=== PATIENT | male | born 1960 | race Caucasian/White ===

== ENCOUNTER → 2018-01-23 | Outpatient (CLI) | payer OTHER | LOC: HRAD 14:05 | PROVIDERS: ATTEND Internal Medicine Rheumatology | DX: Z53.9 Procedure and treatment not carried out, unspecified reason (principal) ==

== ENCOUNTER → 2018-01-26 | Outpatient (CLI) | payer OTHER ==
--- NOTE | 2018-01-26 15:05 | RADRPT ---
EXAM DATE/TIME: 01/26/2018 14:25 [facility] COMPARISON: No previous studies available for comparison. INDICATIONS : Patient states left elbow pain. MEDICAL HISTORY : Arthritis. SURGICAL HISTORY : None. ENCOUNTER: Initial ACUITY: 1 day PAIN SCORE: 6/10 LOCATION: Left Elbow FINDINGS: Two view examination of the left elbow demonstrates no soft tissue swelling, joint effusion, fracture or dislocation. Bony mineralization is normal. CONCLUSION: Negative for degenerative changes or joint effusion. Bayron Garduno MD FACR on January 26, 2018 at 15:03 Board Certified Radiologist. This report was verified electronically.
--- NOTE | 2018-01-26 15:05 | RADRPT ---
EXAM DATE/TIME: 01/26/2018 14:25 [facility] COMPARISON: No previous studies available for comparison. INDICATIONS : Patient states right foot pain. MEDICAL HISTORY : Arthritis. SURGICAL HISTORY : None. ENCOUNTER: Initial ACUITY: 1 day PAIN SCORE: 6/10 LOCATION: Right Foot FINDINGS: Two view examination of the right foot demonstrates no soft tissue swelling, dislocation, or fracture . The calcaneus is intact. Bony mineralization is normal. CONCLUSION: Negative for inflammatory arthritis. Bayron Garduno MD FACR on January 26, 2018 at 15:03 Board Certified Radiologist. This report was verified electronically.
--- NOTE | 2018-01-26 15:06 | RADRPT ---
EXAM DATE/TIME: 01/26/2018 14:28 [facility] COMPARISON: No previous studies available for comparison. INDICATIONS : Patient states left foot pain. MEDICAL HISTORY : Arthritis. SURGICAL HISTORY : None. ENCOUNTER: Initial ACUITY: 1 day PAIN SCORE: 6/10 LOCATION: Left Foot FINDINGS: Two view examination of the left foot demonstrates no soft tissue swelling, dislocation, or fracture. The calcaneus is intact. Bony mineralization is normal. CONCLUSION: Negative for inflammatory arthritis Bayron Garduno MD FACR on January 26, 2018 at 15:04 Board Certified Radiologist. This report was verified electronically.
--- NOTE | 2018-01-26 15:07 | RADRPT ---
EXAM DATE/TIME: 01/26/2018 14:30 [facility] COMPARISON: No previous studies available for comparison. INDICATIONS : Patient states left hand pain. MEDICAL HISTORY : Arthritis. SURGICAL HISTORY : None. ENCOUNTER: Initial ACUITY: 1 day PAIN SCORE: 6/10 LOCATION: Left Hand FINDINGS: Two view examination of the left hand demonstrates no soft tissue swelling, dislocation, or fracture. The joint spaces are maintained. Bony mineralization is normal. CONCLUSION: Scattered radiopaque foreign material, negative for inflammatory arthritis Bayron Garduno MD FACR on January 26, 2018 at 15:05 Board Certified Radiologist. This report was verified electronically.
--- NOTE | 2018-01-26 15:07 | RADRPT ---
EXAM DATE/TIME: 01/26/2018 14:33 [facility] COMPARISON: No previous studies available for comparison. INDICATIONS : Right hand pain. MEDICAL HISTORY : None. SURGICAL HISTORY : None. ENCOUNTER: Initial ACUITY: 1 day PAIN SCORE: 6/10 LOCATION: Right Hand FINDINGS: Two view examination of the right hand demonstrates no soft tissue swelling, dislocation, or fracture . The joint spaces are maintained. Bony mineralization is normal. CONCLUSION: Negative for inflammatory arthritis Bayron Garduno MD FACR on January 26, 2018 at 15:05 Board Certified Radiologist. This report was verified electronically.
--- NOTE | 2018-01-26 15:08 | RADRPT ---
EXAM DATE/TIME: 01/26/2018 14:35 [facility] COMPARISON: No previous studies available for comparison. INDICATIONS : Patient states right elbow pain. MEDICAL HISTORY : None. SURGICAL HISTORY : None. ENCOUNTER: Initial ACUITY: 1 day PAIN SCORE: 6/10 LOCATION: Right Elbow FINDINGS: Small joint effusion is evident. Minimal degenerative changes are noted. No fracture. Bony mineral ization is normal. CONCLUSION: Small joint effusion Bayron Garduno MD FACR on January 26, 2018 at 15:05 Board Certified Radiologist. This report was verified electronically.
== END ==
LOC: HRAD 14:07
PROVIDERS: ATTEND Internal Medicine Rheumatology
DX: L40.51 Distal interphalangeal psoriatic arthropathy (principal)
CPT/HCPCS: 73070; 73120; 73620